=== PATIENT | male | born 1980 | race Caucasian/White ===

== ENCOUNTER 2024-06-28 08:42 | Outpatient (CLI) | payer OTHER, SELFPAY ==
--- NOTE | ~2024-06-28 | MR_ITS ---
EXAMINATION: MR knee RT wo con DATE: 06/28/2024 09:49 INDICATION: Medial collateral ligament complex rupture. TECHNIQUE: Magnetic resonance imaging (MRI) of the right knee was performed without intravenous contr ast. Sequences included coronal PD-weighted FSE, coronal PD-weighted FS FSE, sagittal T2-weighted FS E, sagittal PD-weighted FS FSE and axial PD weighted fat saturated FSE. COMPARISON: None. FINDINGS: Medial compartment: There appears to be both an avulsion of the posterior root of the medial meniscus as well as a full o r near full-thickness radial tear at the posterior horn located slightly medial to the root. Deep cho ndral fissure extending anteroposteriorly along the lateral side of the junction of the anterior weig htbearing medial femoral condyle with mild underlying subarticular edema-like signal change at the po sterior aspect of the fissure. Lateral compartment: Lateral meniscus is normal. Instantly noted is a normal variant oblique meniscomeniscal ligament. Chr onic fracture with mild depression of a portion of the articular surface along the anterior aspect of the medial tibial plateau. There is chondral swelling and partial-thickness fissuring of the overlyi ng articular cartilage some underlying subarticular cystlike change. There is some deep chondral ulce ration at the central aspect of the lateral tibial plateau posterior to the region of depression with prominent subarticular edema-like signal change and some additional subarticular cystlike change. Le ss severe partial thickness cartilage loss with smooth chondral surface regularity at the posterior a spect of the lateral tibial plateau. Partial-thickness cartilage loss with smooth chondral surface wi thout degenerative subchondral changes along the lateral side of the posterior weightbearing lateral femoral condyle. Patellofemoral compartment: Deep chondral fissuring without degenerative subchondral changes at the medial half of the medial pat ellar facet. Small region of shallow chondral fissuring involving less than 50% the cartilage thickne ss at the medial side of the lateral patellar facet. Trochlear cartilage appears relatively preserved . Ligaments and tendons: Anterior cruciate ligament is normal. There is thickening and increased intrasubstance signal at the posterior cruciate ligament consistent with at least partial tear. The fibular collateral ligament co mplex is normal. There is thickening and increased signal of the medial collateral ligament complex c entered 3 cm distal to the knee joint line with minimal surrounding soft tissue edema consistent with subacute or chronic partial tear. Small enthesophyte at the patellar insertion of the otherwise norm al-appearing quadriceps tendon. Patellar tendon is normal. The visualized medial and lateral hamstrin g tendons as well as the iliotibial band are normal. Fluid: Small to moderate-sized right knee joint effusion. No loose osteochondral bodies identified. Osseous/other: Bone island at the lateral femoral condyle. 5 mm T2 hyperintense lesion with globular margins in the metaphyseal region of the medial femoral condyle with location and appearance most typical for a smal l enchondroma. No acute fracture or other pathologic marrow replacing process. IMPRESSION: 1. Posterior horn radial tear and posterior root avulsion of the medial meniscus. 2. Likely subacute or chronic partial tear of the mid to distal medial collateral ligament. 3. At least partial tear of the posterior cruciate ligament. Correlate with physical exam to assess f or degree of residual functional integrity. 4. 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 5. Chronic fracture of the anterior lateral tibial plateau with mild depression of the articular tobin ex. Reviewed, dictated and finalized at location A. IMPRESSION: 1. Posterior horn radial tear and posterior root avulsion of the medial meniscu s. 2. Likely subacute or chronic partial tear of the mid to distal medial collater al ligament. 3. At least partial tear of the posterior cruciate ligament. Correlate with phy sical exam to assess for degree of residual functional integrity. 4. Mild tricompartmental osteoarthritis with medial regions of moderate and hig h-grade chondromalacia in all 3 compartments. 5. Chronic fracture of the anterior lateral tibial plateau with mild depression of the articular cortex.
== END 2024-06-28 08:43 | disposition home or self-care (01) ==
LOC: ANHIMG 08:46
PROVIDERS: Visit Provider Internal Medicine
DX: S83.411A Sprain of medial collateral ligament of right knee, initial encounter (principal); X58.XXXA Exposure to other specified factors, initial encounter
CPT/HCPCS: 73721